=== PATIENT | female | born 1985 | race Caucasian/White ===

== ENCOUNTER 2018-03-12 07:26 | Day surgery (SDC) | payer BC ==
[2018-03-10 14:39] LABS: BASOPHILS # (AUTO) 0.05 x10^3/uL (0-0.1); BASOPHILS % (AUTO) 1 % (0-1); EOSINOPHILS # (AUTO) 0.08 x10^3/uL (0-0.4); EOSINOPHILS % (AUTO) 1 % (1-7); LYMPHOCYTES # (AUTO) 2.78 x10^3/uL (1-3.4); LYMPHOCYTES % (AUTO) 33 % (22-44); MD NO; MEAN CORPUSCULAR HEMOGLOBIN 30.2 pg (27.0-34.8); MEAN CORPUSCULAR HGB CONC 33.9 g/dL (32.4-35.8); MEAN CORPUSCULAR VOLUME 89.1 fL (80-100); MEAN PLATELET VOLUME 7.4 fL (7.4-10.4); MONOCYTES # (AUTO) 0.64 x10^3/uL (0.2-0.8); MONOCYTES % (AUTO) 8 % (2-9); NEUTROPHILS # (AUTO) 4.78 x10^3/uL (1.8-6.8); NEUTROPHILS % (AUTO) 57 % (42-75); PLATELET COUNT 275 x10^3/uL (130-400); RED BLOOD COUNT 4.59 x10^6/uL (3.82-5.3); RED CELL DISTRIBUTION WIDTH 12.5 % (9.6-15.2)
[~2018-03-12] VITALS: Ht 160 cm; Wt 92.0 kg
[~2018-03-12 07:26] MED LIST: NONE PER PT
[2018-03-12] MEDS ORDERED: LACTATED RINGERS 1,000 ML IV SCH (08:56)
[2018-03-12 09:00] VITALS: BP 116/80
[2018-03-12] MEDS ORDERED: APREPITANT 40 MG CAPSULE ONE (09:34)
[2018-03-12] MEDS ORDERED: SILVER NITRATE STICK TP ONE (09:38)
[2018-03-12] MEDS ORDERED: BUPIVACAINE/PF-EPI 0.5% 1:200K ONE (09:38)
[2018-03-12] MEDS ORDERED: FENTANYL PF 100 MCG/2ML ONE ×2 (09:53→11:03)
[2018-03-12] MEDS ORDERED: MIDAZOLAM 1 MG/ML, 2ML ONE (09:54)
[2018-03-12] MEDS ORDERED: APREPITANT 40 MG CAPSULE PO ONE (10:00)
[2018-03-12] MEDS ORDERED: SUGAMMADEX 200 MG/2 ML IVPush ONE (10:11)
[2018-03-12] MEDS ORDERED: PROPOFOL 10 MG/ML, 20ML ONE ×2 (10:15→10:45)
[2018-03-12] MEDS ORDERED: ROCURONIUM 10MG/ML,5ML ONE (10:16)
[2018-03-12] MEDS ORDERED: LIDOCAINE-MPF 2% ,5ML ONE (10:16)
[2018-03-12] MEDS ORDERED: MORPHINE SULFATE 4 MG/ML, 1ML IVPush PRN (10:30)
[2018-03-12] MEDS ORDERED: HYDROmorphone 2 MG/ML, 1ML IVPush PRN (10:30)
[2018-03-12] MEDS ORDERED: OXYcodone 5 MG/5 ML ORAL.SOL UDC PO PRN (10:30)
[2018-03-12] MEDS ORDERED: MEPERIDINE/PF 25MG/0.5ML IVPush PRN (10:30)
[2018-03-12] MEDS ORDERED: HYDROcodone/APAP 7.5-325MG/15ML UDC PO PRN (10:30)
[2018-03-12] MEDS ORDERED: OXYcodone 5 MG/5 ML ORAL.SOL UDC ONE (11:03)
[2018-03-12] MEDS: FENTANYL PF 100 MCG/2ML IV PRN ×2 (11:05→11:16)
[2018-03-12] MEDS ORDERED: MEPERIDINE/PF 25MG/ML,1ML ONE (11:07)
[2018-03-12] MEDS ORDERED: KETOROLAC 30 MG/1 ML ONE (11:19)
[2018-03-12] MEDS ORDERED: KETOROLAC 30 MG/1 ML IVPush PRN (11:30)
[2018-03-12] MEDS ORDERED: HYDROmorphone 2 MG/ML, 1ML ONE (11:36)
== END 2018-03-12 13:55 | disposition home or self-care (01) ==
LOC: OUT 07:26
PROVIDERS: ATTEND Obstetrics & Gynecology
DX: Z30.2 Encounter for sterilization (principal); Z30.432 Encounter for removal of intrauterine contraceptive device; Z98.890 Other specified postprocedural states; Z79.01 Long term (current) use of anticoagulants
CPT/HCPCS: 36415; 58301; 58661; 84703; 85025; 86850; 86900; 88302; J1885; J2175; J2250; J2704; J3010; J3490; J7120; J8501